=== PATIENT | male | born 1985 | race African-American/Black ===

== ENCOUNTER 2017-11-13 02:52 | Emergency (ER) | payer SELFPAY ==
[~2017-11-13] VITALS: Ht 182.9 cm; Wt 80.6 kg
[2017-11-13] MEDS ORDERED: DIPHTH,PERTUSS(ACELL),TET TOX 0.5 ML DISP.SYRIN. VAX IM ONE (03:30)
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
[2017-11-13] MEDS ORDERED: CEPH-264 PO (05:08)
[2017-11-13 05:23] VITALS: BP 112/54
[2017-11-13] MEDS ORDERED: IBUPROFEN 800 MG TABLET. PO ONE ×2 (05:33→06:00)
== END 2017-11-13 05:40 | disposition home or self-care (01) ==
LOC: ER 02:52
DX: S71.111A Laceration without foreign body, right thigh, initial encounter (principal); M25.561 Pain in right knee; W26.0XXA Contact with knife, initial encounter; Y93.89 Activity, other specified; Y99.8 Other external cause status; Y92.89 Other specified places as the place of occurrence of the external cause
CPT/HCPCS: 12001; 73700; 99284-25

== ENCOUNTER 2021-05-04 17:03 | Emergency (ER) | payer SELFPAY ==
[~2021-05-04] VITALS: Ht 182.9 cm; Wt 81.0 kg
[~2021-05-04 17:03] MED LIST: CEPH-264 PO
[2021-05-04 17:17] VITALS: BP 160/77
[2021-05-04] MEDS ORDERED: ACETAMINOPHEN 325 MG TABLET PO ONE (17:30)
[2021-05-04] MEDS ORDERED: ONDA4TAB7 PO (17:30)
[2021-05-04] MEDS ORDERED: ONDANSETRON ODT 4 MG TAB.RAPDIS PO ONE (17:30)
--- NOTE | 2021-05-04 17:32 | PHYS DOC ---
Past History Past Medical History: No Pertinent History Additional Past Medical Histor: Hep C (CLIFTON RAMÍREZ APRN) Past Surgical History: No Surgical History (CILFTON RAMÍREZ APRN) Alcohol Use: None Drug Use: None (CLIFTON RAMÍREZ APRN) Attending Co-Sign The patient was seen and interviewed as well as examined at the bedside. The chart was reviewed. The case was discussed. Agree with the plan of care. (CARLOS ZAVALA DO) General Adult EDM: Chief Complaint: COUGH HPI: HPI: Patient is a 35-year-old male being seen in the ER for multiple complaints including headache, fever/chills, body aches, nausea, clear productive cough for 4 days. Patient denies shortness of breath, chest pain, diarrhea, sick exposures, loss of taste or smell, abdominal pain, vomiting. Patient is not vaccinated against COVID-19. Patient has had no treatment for the symptoms prior to arrival. (CLIFTON RAMÍREZ APRN) Review of Systems: Review of Systems: Constitutional: Denies fever or chills Eyes: Denies change in visual acuity HENT: Denies nasal congestion or sore throat Respiratory: Denies cough or shortness of breath Cardiovascular: Denies chest pain or edema GI: Denies abdominal pain, nausea, vomiting, bloody stools or diarrhea : Denies dysuria Musculoskeletal: Denies back pain or joint pain Integument: Denies rash Neurologic: Denies headache, focal weakness or sensory changes Endocrine: Denies polyuria or polydipsia Lymphatic: Denies swollen glands Psychiatric: Denies depression or anxiety (CLIFTON RAMÍREZ APRN) Allergies: Allergies: Allergies Coded Allergies Type Severity Reaction Last Updated Verified No Known Drug Allergies 11/13/17 No (CLIFTON RAMÍREZ APRN) Physical Exam: PE: Constitutional: Well developed, well nourished, no acute distress, non-toxic appearance. [] HENT: Normocephalic, atraumatic, bilateral external ears normal, oropharynx moist, no oral exudates, nose normal. [] Eyes: PERRL, conjunctiva normal, no discharge. [] Neck: Normal range of motion, no stridor Cardiovascular:Heart rate regular rhythm, no murmur [] Lungs & Thorax: Bilateral breath sounds clear to auscultation [] Abdomen: Bowel sounds normal, soft, no tenderness, no masses, no pulsatile masses. [] Skin: Warm, dry, no erythema, no rash. [] Back: Normal range of motion Extremities: No tenderness, no cyanosis, no clubbing, ROM intact, no edema. [] Neurologic: Alert and oriented X 3, normal motor function, normal sensory function, no focal deficits noted. [] Psychologic: Affect normal, judgement normal, mood normal. [] (CLIFTON RAMÍREZ APRN) Current Patient Data: Vital Signs: Vital Signs Date Time Temp Pulse Resp B/P (MAP) Pulse Ox O2 Delivery O2 Flow Rate FiO2 05/04/21 17:17 99.2 81 20 160/77 97 Room Air (CLIFTON RAMÍREZ APRN) EKG: EKG: [] (CLIFTON RAMÍREZ APRN) Radiology/Procedures: Radiology/Procedures: PROCEDURE: CHEST AP ONLY Exam: Chest one view INDICATION: Short of air, Covid TECHNIQUE: Frontal view of the chest Comparisons: None FINDINGS: The cardiomediastinal silhouette and pulmonary vessels are within normal limits. The lung and pleural spaces are clear. IMPRESSION: No acute cardiopulmonary process. Electronically signed by: Carmina Acosta MD (05/04/2021 5:31 PM) [facility] DICTATED AND SIGNED BY: CARMINA ACOSTA MD DATE: 05/04/211729 CC: EMERGENCY,DEPARTMENT; CLIFTON RAMÍREZ APRN; PCP,NO ~MTH0 0 [] (CLIFTON RAMÍREZ APRN) Heart Score: C/O Chest Pain: No Risk Factors: Risk Factors: DM, Current or recent (<one month) smoker, HTN, HLP, family history of CAD, obesity. Risk Scores: Score 0 - 3: 2.5% MACE over next 6 weeks - Discharge Home Score 4 - 6: 20.3% MACE over next 6 weeks - Admit for Clinical Observation Score 7 - 10: 72.7% MACE over next 6 weeks - Early Invasive Strategies (CLIFTON RAMÍREZ APRN) Course & Med Decision Making: Course & Med Decision Making Pertinent Labs and Imaging studies reviewed. (See chart for details) [] Patient is a 35-year-old male being seen in the ER for multiple complaints including headache, fever, body aches, nausea, cough. Patient's nausea was treated in the ER with Zofran. He was also given Tylenol for his fever/pain. A chest x-ray was performed and it was negative for any acute findings. Patient was tested in the ER for COVID-19. This test is pending and patient will be notified of results when they become available. I discussed with patient all findings and diagnostic testing as well as the need to follow-up with PCP for further evaluation and treatment or return to the ER if any new or worsening symptoms. Strict return precautions were also discussed at length. Patient voiced understanding and agreement with the plan. Patient is hemodynamically stable at the time of disposition. (CLIFTON RAMÍREZ APRN) Dragon Disclaimer: Dragon Disclaimer: This electronic medical record was generated, in whole or in part, using a voice recognition dictation system. (CLIFTON RAMÍREZ APRN) Departure Departure: Impression: Primary Impression: Person under investigation for COVID-19 Disposition: HOME / SELF CARE / HOMELESS Condition: GOOD Referrals: PCP,NO (PCP) Patient Instructions: Nausea and Vomiting Additional Instructions: You were seen for headache, fever, body aches, nausea, cough. Your physical exam was reassuring. Your chest x-ray was normal. We tested you for COVID-19 but this test does not come back for 1 to 2 days. In the meantime you will need to quarantine yourself at home away from all other individuals, especially those who are elderly or have any other chronic health issues or any one with immunocompromise status. You should return to the ER if you develop worsening cough, shortness of breath, chest pain, or any other new or concerning symptoms. Alternate Tylenol and ibuprofen as needed for your body aches and pain. If your test does come back positive we will need to quarantine yourself for 10 days until symptom free. You should make sure to drink plenty of fluids and get plenty of rest. A prescription for Zofran was sent into your pharmacy of choice. Please take this as directed. Over the next 24 hours you should drink clear liquids and can resume a bland diet following. Scripts Ondansetron Hcl (ZOFRAN) 4 Mg Tablet 4 MG PO TID PRN PRN for NAUSEA for 7 Days, #21 TAB 0 Refills Prov: CLIFTON RAMÍREZ APRN 05/04/21 CLIFTON RAMÍREZ APRN May 04, 2021 17:32 CARLOS ZAVALA DO May 05, 2021 18:14
--- NOTE | 2021-05-05 16:27 | NUR ---
IP: Informed pt of positive covid test and the need to quarantine for 10 days. Pt verbalized understanding.
== END 2021-05-04 18:39 | disposition home or self-care (01) ==
LOC: ER 17:19
DX: U07.1 COVID-19 (principal)
CPT/HCPCS: 71045; 99284; Q0162; U0005; 99283